=== PATIENT | male | born 1945 | race Caucasian/White ===

== ENCOUNTER 2017-02-25 12:13 | Emergency (ER) | payer OTHER, MEDICARE ==
[~2017-02-25] VITALS: Ht 172.7 cm; Wt 106.8 kg
[~2017-02-25 12:13] MED LIST: /AUGM25TA; ASPI325T; ATEN50TA2; ATEN50TA2 OR; BYETTA; CIPR500T19; FISHCAP; GLUC500T; HUMUINJ; INSULANT; INSULANT SC; INSULIN 70/30; Januvia PO; L-THYROXINE; LANTUS SC; LISI10TA4 OR; LISI2.5T PO; LOVAZA PO; NASALIDE PO; NIAS10003 OR; NIASPAN; NITR0.4S SL; REGULAR INSULIN; ROSU10TA PO; SYNT50TA PO; SYNT75TA; THERGRAN; TRIC145T19; TRILIPIX PO; VITA100T5 OR; VITA400C; [UNRECOGNIZED DRUG - REMARK]; [UNRECOGNIZED DRUG - SUPPLY]
[2017-02-25] MEDS ORDERED: ISOS60TA2 PO (12:45)
[2017-02-25] MEDS ORDERED: ROSU20TA PO (12:45)
[2017-02-25] MEDS ORDERED: JANU100T PO (12:45)
[2017-02-25] MEDS ORDERED: TOUJ1.2I SC (12:45)
[2017-02-25] MEDS ORDERED: LEVO175T2 PO (12:45)
[2017-02-25] MEDS ORDERED: TESS100C PO (12:45)
[2017-02-25] MEDS ORDERED: AMOX875T2 PO (12:45)
[2017-02-25] MEDS ORDERED: LISI10TA4 PO (12:45)
[2017-02-25] MEDS ORDERED: HUMA50IN4 SC (12:45)
[2017-02-25] MEDS ORDERED: METF500T4 PO (12:45)
[2017-02-25] MEDS ORDERED: FENO1CAP2 PO (12:45)
[2017-02-25] MEDS ORDERED: ATEN50TA2 PO (12:45)
[2017-02-25] MEDS ORDERED: CLOP75TA2 PO (12:45)
--- NOTE | 2017-02-25 14:01 | REP ---
Clinical: Shortness of breath . Comparison: 09/14/2014 . Technique: PA and lateral. Findings: The mediastinum and cardiac silhouette are stable. Prior sternotomy and CABG. The lung toussiant are clear and without acute consolidation, effusion, or pneumothorax. The skeletal structures are intact and normal. Impression: 1. No acute cardiopulmonary process. Signed by Sterling Easton MD 02/25/2017 01:53 P
[2017-02-25] MEDS ORDERED: IPRATROPIUM 0.5MG/ALBUTEROL 2.5MG INH SOL UD 3ML (DUONEB)(J7620) NEB ONE ×2 (14:30→16:15)
[2017-02-25 15:31] LABS: BASO % 0.5 % (0.0-1.0); EOS # 0.1 K/mm3 (0.0-0.50); EOS % 1.1 % (0.0-3.0); LARGE UNSTAINED CELL # 0.1 K/mm3 (0.0-0.4); LARGE UNSTAINED CELL % 1.5 % (0.0-4.0); LYMPH # 0.8 K/mm3 (1.5-4.5); LYMPH % 9.9 % (24.0-44.0); MEAN CORPUSCULAR HEMOGLOBIN 27.3 pg (27.0-33.0); MEAN CORPUSCULAR HGB CONC 33.4 g/dl (32.0-36.5); MEAN CORPUSCULAR VOLUME 81.7 fl (80.0-96.0); MONO # 0.4 K/mm3 (0.0-0.8); MONO % 4.5 % (0.0-5.0); NEUTROPHILS # 6.8 K/mm3 (1.8-7.7); NEUTROPHILS % 82.4 % (36.0-66.0); PLATELET COUNT, AUTOMATED 225 k/mm3 (150-450); RED CELL DISTRIBUTION WIDTH 12.9 % (11.5-14.5); WHITE BLOOD COUNT 8.2 K/mm3 (4.0-10.0)
[2017-02-25] MEDS ORDERED: methylPREDNISolone INJ 125 MG/2 ML VIAL (J2930) IV ONE (16:30)
[2017-02-25 16:45] LABS: ALBUMIN/GLOBULIN RATIO 0.77 (1.00-1.93); ALKALINE PHOSPHATASE 46 U/L (45-117); ALT/SGPT 30 U/L (12-78); ANION GAP 8 MEQ/L (8-16); AST/SGOT 29 U/L (15-37); BILIRUBIN,TOTAL 0.3 MG/DL (0.2-1.0); BLOOD UREA NITROGEN 16 MG/DL (7-18); CALCIUM LEVEL 8.4 MG/DL (8.8-10.2); CARBON DIOXIDE LEVEL 26 MEQ/L (21-32); CHLORIDE LEVEL 103 MEQ/L (98-107); CREATININE FOR GFR 1.12 MG/DL (0.70-1.30); GLOMERULAR FILTRATION RATE > 60.0 (>49); GLUCOSE, FASTING 191 MG/DL (80-110); POTASSIUM SERUM 4.2 MEQ/L (3.5-5.1); SODIUM LEVEL 137 MEQ/L (136-145); TOTAL PROTEIN 6.9 GM/DL (6.4-8.2)
[2017-02-25] MEDS ORDERED: PRED20TA PO (17:29)
[2017-02-25] MEDS ORDERED: AZIT-12 PO (17:29)
[2017-02-25] MEDS ORDERED: ALBU17IN2 INH (17:29)
[2017-02-25] MEDS ORDERED: AZITHROMYCIN 250 MG TAB As Ordered ONE (17:38)
[2017-02-25] MEDS ORDERED: AZITHROMYCIN 250 MG TAB PO ONE (17:45)
[2017-02-25 17:54] VITALS: BP 132/70
--- NOTE | 2017-02-26 21:01 | ECGEPIP ---
Stationary ECG Study [facility] - ED Test Date: 2017-02-25 Pat Name: NICOLE PARTIDA Department: Room: - Gender: M Visual Display Associate: rn : 1945 Requested By: RAQUEL Gamino PA-C Order Number: [id number] Reading MD: Alia Noriega Measurements Intervals Fisk Rate: 79 P: -54 WV: 137 QRS: -42 QRSD: 101 T: 59 QT: 368 QTc: 424 Interpretive Statements SINUS RHYTHM MARKED LEFT AXIS DEVIATION PATTERN CONSISTENT WITH PULMONARY DISEASE NO PRIOR FOR COMPARISON Electronically Signed On 02-26-2017 21:01:35 EDT by Alia Noriega
== END 2017-02-25 17:54 | disposition home or self-care (01) ==
LOC: M ED 12:13
DX: J20.9 Acute bronchitis, unspecified (principal)
CPT/HCPCS: 71020; 80053; 83880; 85025; 93005; 94640; 96374; 99283; J2930

== ENCOUNTER 2018-03-24 12:26 | Outpatient (RCR) | payer MEDICARE, OTHER | END 2018-04-23 | LOC: M CR 12:26 | DX: Z98.61 Coronary angioplasty status (principal) | CPT/HCPCS: 93798 ==

== ENCOUNTER 2018-05-02 11:17 | Outpatient (RCR) | payer MEDICARE, OTHER | END 2018-05-23 | LOC: M CR 11:17 | DX: Z98.61 Coronary angioplasty status (principal) | CPT/HCPCS: 93798 ==

== ENCOUNTER → 2018-05-19 | Outpatient (REF) | payer MEDICARE, OTHER ==
[2018-05-19 17:43] LABS: FERRITIN 9 NG/ML (26-388); IRON (FE) 26 UG/DL (65-175); PERCENT SATURATION 4.6 % (19.7-50.0); TOTAL IRON BINDING CAPACITY 560 UG/DL (250-450)
[2018-05-19 17:53] LABS: FOLATE 10.3 NG/ML; VITAMIN B12 LEVEL 379 PG/ML
== END ==
LOC: M LAB REF 17:02
DX: D50.9 Iron deficiency anemia, unspecified (principal)
CPT/HCPCS: 82746

== ENCOUNTER → 2018-06-02 | Outpatient (REF) | payer MEDICARE, OTHER ==
[2018-06-02 13:29] LABS: RETIC HEMOGLOBIN EQUIVALENT 28.6 pg (24-36); RETICULOCYTE # 106.3 10^9/L (17-77)
== END ==
LOC: M LAB REF 13:04
DX: D50.9 Iron deficiency anemia, unspecified (principal)
CPT/HCPCS: 85046

== ENCOUNTER 2018-06-06 09:26 | Day surgery (SDC) | payer MEDICARE, OTHER ==
[~2018-06-06] VITALS: Ht 172.7 cm; Wt 99.3 kg
[~2018-06-06 09:26] MED LIST changes: +ALBU17IN2 INH; +AMOX875T2 PO; +ASPI81TA52 PO; +ATEN50TA2 PO; +AZIT-12 PO; +CLOP75TA2 PO; +FENO1CAP2 PO; +FURO20TA2 PO; +HUMA50IN4 SC; +INSUHUMDS SC; +IRON325T7 PO; +ISOS60TA2 PO; +JANU100T PO; +JARD1TAB PO; +LEVO175T2 PO; +LISI10TA4 PO; +METF500T4 PO; +NITR4TASL SL; +OMEP40CA2 PO; +PRED20TA PO; +PROAAER10 INH; +ROSU20TA4 PO; +TESS100C PO; +TOUJ1.2I SC; +TRIL135C6 PO; +imdur PO
[2018-06-06] MEDS ORDERED: NS 1,000 ML IV ONE (10:00)
[2018-06-06] MEDS ORDERED: PROPOFOL 200 MG/20 ML VIAL As Ordered ONE (10:18)
[2018-06-06] MEDS ORDERED: LIDOCAINE 2% INJ 100 MG/5 ML SDV (FOR ANES.) As Ordered ONE (10:18)
--- NOTE | 2018-06-06 10:29 | ROOR ---
Patient Name: Sunil Braxton Procedure Date: 06/06/2018 10:16 AM Date of : 1945 Age: 73 Room: [facility] Gender: Male Note Status: Finalized Procedure: Upper GI endoscopy Indications: Iron deficiency anemia, Unexplained iron deficiency anemia Providers: Tristan Mejia MD Referring MD: NIRAV PICHARDO JR, MD Requesting Provider: Medicines: Monitored Anesthesia Care Complications: No immediate complications. Procedure: Pre-Anesthesia Assessment: - The heart rate, respiratory rate, oxygen saturations, blood pressure, adequacy of pulmonary ventilation, and response to care were monitored throughout the procedure. The Endoscope was introduced through the mouth, and advanced to the second part of duodenum. The upper GI endoscopy was accomplished without difficulty. The patient tolerated the procedure well. Findings: The Z-line was regular and was found 40 cm from the incisors. No other significant abnormalities were identified in a careful examination of the stomach. The exam of the duodenum was otherwise normal. Impression: - Z-line regular, 40 cm from the incisors. - No specimens collected. - The examination was otherwise normal. Recommendation: - Patient has a contact number available for emergencies. The signs and symptoms of potential delayed complications were discussed with the patient. Return to normal activities tomorrow. Written discharge instructions were provided to the patient. - Discharge patient to home. - Follow an antireflux regimen. - Continue present medications. - Return to referring physician. - The findings and recommendations were discussed with the patient's family. Tristan Mejia MD Tristan Meija MD 06/06/2018 10:29:01 AM This report has been signed electronically. Number of Addenda: 0 Note Initiated On: 06/06/2018 10:16 AM Estimated Blood Loss: Estimated blood loss: none.
--- NOTE | 2018-06-06 10:53 | ROOR ---
Patient Name: Sunil Braxton Procedure Date: 06/06/2018 10:17 AM Date of : 1945 Age: 73 Room: [facility] Gender: Male Note Status: Finalized Procedure: Total Colonoscopy to Cecum + Cold + Biopsy Snare Polypectomy + Hemoclips Indications: Unexplained iron deficiency anemia Providers: Tristan Mejia MD Referring MD: NIRAV PICHARDO JR, MD Requesting Provider: Medicines: Monitored Anesthesia Care Complications: No immediate complications. Procedure: Pre-Anesthesia Assessment: - The heart rate, respiratory rate, oxygen saturations, blood pressure, adequacy of pulmonary ventilation, and response to care were monitored throughout the procedure. The Colonoscope was introduced through the anus and advanced to the cecum, identified by appendiceal orifice and ileocecal valve. The colonoscopy was performed without difficulty. The patient tolerated the procedure well. The quality of the bowel preparation was excellent. Findings: The perianal and digital rectal examinations were normal. Non-bleeding internal hemorrhoids were found during retroflexion. The hemorrhoids were small and Grade I (internal hemorrhoids that do not prolapse). Multiple small and large-mouthed diverticula were found in the recto-sigmoid colon, sigmoid colon and descending colon. A medium polyp was found at 10 cm proximal to the anus. The polyp was sessile. The polyp was removed with a cold snare. Resection and retrieval were complete. To prevent bleeding after the polypectomy, one hemostatic clip was successfully placed (MR conditional). There was no bleeding at the end of the procedure. A medium polyp was found in the transverse colon. The polyp was sessile. The polyp was removed with a jumbo cold forceps. Resection and retrieval were complete. A small polyp was found at 50 cm proximal to the anus. The polyp was sessile. The polyp was removed with a jumbo cold forceps. Resection and retrieval were complete. The exam was otherwise without abnormality on direct and retroflexion views. Impression: - Non-bleeding internal hemorrhoids. - Diverticulosis in the recto-sigmoid colon, in the sigmoid colon and in the descending colon. - One medium polyp at 10 cm proximal to the anus, removed with a cold snare. Resected and retrieved. Clip (MR conditional) was placed. - One medium polyp in the transverse colon, removed with a jumbo cold forceps. Resected and retrieved. - One small polyp at 50 cm proximal to the anus, removed with a jumbo cold forceps. Resected and retrieved. - The examination was otherwise normal on direct and retroflexion views. - The exam was otherwise normal to the cecum. Recommendation: - Patient has a contact number available for emergencies. The signs and symptoms of potential delayed complications were discussed with the patient. Return to normal activities tomorrow. Written discharge instructions were provided to the patient. - High fiber diet. - Discharge patient to home. - Continue present medications. - Await pathology results. - Telephone GI clinic for pathology results in 1 week. - Repeat colonoscopy in 5 years for surveillance based on pathology results. - Return to referring physician. - Check Portal Online for Path Results.([email or web address] - The findings and recommendations were discussed with the patient's family. Tristan Mejia MD Tristan Mejia MD 06/06/2018 10:52:34 AM This report has been signed electronically. Number of Addenda: 0 Note Initiated On: 06/06/2018 10:17 AM Estimated Blood Loss: Estimated blood loss: none.
[2018-06-06 11:15] VITALS: BP 124/67
== END 2018-06-06 11:23 | disposition home or self-care (01) ==
LOC: M OPP 09:26
PROVIDERS: ATTEND Internal Medicine Gastroenterology
DX: K64.0 First degree hemorrhoids (principal); K57.30 Diverticulosis of large intestine without perforation or abscess without bleeding; D12.6 Benign neoplasm of colon, unspecified; D12.3 Benign neoplasm of transverse colon; D50.9 Iron deficiency anemia, unspecified

== ENCOUNTER 2018-07-17 14:47 | Outpatient (RCR) | payer MEDICARE, OTHER ==
--- NOTE | 2018-07-16 09:06 | CARECAPL ---
Assessment Account #s: Re-Assessment II General Diagnoses: PTCA (EXTENDED 8 MORE VISITS AFTER W/U FOR ANEMIA/POOR ATTENDENCE) Date of event: Feb 03, 2018 Physician: Jr Cobb Collins Allergies: Coded Allergies: Atorvastatin (Verified Adverse Reaction, Intermediate, muscle pain, 06/06/18) Ketorolac Tromethamine (Verified Adverse Reaction, Mild, nausea, 06/06/18) Date Entered Program: Mar 24, 2018 Risk strat for cardiac event: High Exercise Date: Jul 16, 2018 Assessment: Re-Assessment II Exercise Prescription Plan TO EDUCATE AND BUILD ENDURANCE THROUGH MONITORED EXERCISE Modalities initiated: Treadmill (METS=2.53/RPE=2.5), Nustep (METS=2.17/RPE=2), Arm Aerometer (METS=2.7/RPE=3), Dumbells (4#/RPE=3), Recumbent Bike (METS=3 .9/RPE=4) Frequency: 3 Duration (Minutes) 30-60 minutes total exercise a day. 10-12 work intervals in minutes. 5 MIN PRN rest intervals in minutes. Functional Capacity Goal Sustained Metabolic Equivalent of a task (MET) goal of 3.5-4.5 for 15-20 minutes. Intensity: 3-Moderate Progression (METS) Increase by: 0.5 METS every: 5 sessions TOLERATED Angina with ex: No Target Heart Rate +35-45 PER BETA GOGO THERAPY Resistance Training: Yes Weight (pounds): 4 Reps: 12-15 Hypertension: Yes Hypertension controlled with: Medication Resting 118/70 Peak Exercise BP 180/80 Medications Scheduled (Tobouchra Estrada), 90 UNITS SC QHS, (Reported) (Humalog Kwikpen), 20 UNITS SC QAM, (Reported) (Trilipix), 135 MG PO DAILY, (Reported) (Aspirin EC Low Dose), 81 MG PO DAILY, (Reported) (Toujeo Solostar), 70 UNIT SC QAM, (Reported) (Iron High-Potency), 65 MG PO DAILY, (Reported) Albuterol Sulfate (Proair Hfa), 2 PUFF INH PRN, (Reported) Atenolol (Atenolol), 75 MG PO DAILY, (Reported) Clopidogrel Bisulfate (Clopidogrel), 75 MG PO DAILY, (Reported) Empagliflozin (Jardiance), 10 MG PO DAILY, (Reported) Furosemide (Furosemide), 20 MG PO DAILY, (Reported) Insulin Human Lispro (Humalog), 15 UNITS SC aclunch, (Reported) Insulin Human Lispro (Humalog), 30 UNITS SC ACS, (Reported) Insulin Human Lispro (Humalog), 30 UNITS SC QHS, (Reported) Levothyroxine Sodium (Synthroid), 175 MG PO DAILY, (Reported) Lisinopril (Lisinopril), 10 MG PO DAILY, (Reported) Metformin Hydrochloride (Metformin HCl ER), 1,000 MG PO BID, (Reported) Omeprazole (Omeprazole), 40 MG PO DAILY, (Reported) Rosuvastatin Calcium (Rosuvastatin Calcium), 20 MG PO DAILY, (Reported) [imdur], 60 MG PO DAILY, (Reported) Scheduled PRN Nitroglycerin (Nitrostat), 0.4 MG SL PRN PRN for CHEST PAIN, (Reported) Current BP 108/60 Med Change: No Intervention Resistance Training: Yes Education: Self pulse, Ex safety, S/S to report, Low NA diet, BP medication, RPE Scale, Equipment orientation, warm up/cool down, Understand BP, Physical Active Target Goals Individual exercise Rx (1) BP 140/90 or 130/80 if DM or CKD (1) Aerobic active 30+min 5 days per week (1) Nutrition Date: Jul 16, 2018 Assessment: Re-Assessment II Lipid- med/supplement ROSUVASTATIN Med Change: No Diabetes Diabetes: Yes Fasting Blood Sugar: 157 Diabetes medication METFORMIN/JANUVIA Monitor Blood Sugar at home: Yes Medication Change: No Weight Management Weight (lbs): 220 Special Diet: low salt, low-fat Current Weight (pounds): 220 Intervention Security Clerk Consult: No Nurse/patient discussion: Yes Diet Class: Yes Referral to Diabetes education: No Referral to lipid clinic: No Referral to weight mangement p: No Education S&S hypo/hyper glycemia, Relate Diabetes in CAD, Eating Healthy Target goal LDL-C<100 if triglycerides are >200 Non-HDL-C should be <130 (1) LDL-C<70 for high risk patients (4) HbA1c<7% (1) BMI<25 Waist cir<40in M/<35in F (1) Education Date: Jul 16, 2018 Assessment: Re-Assessment II Learning Barriers: ready Family Support: Yes Tobacco use: No Tobacco Use Smokeless tobacco: No Intervention Referral to smoking cessation: No Individual education and couns: No Tobacco Adjunct: No Education class schedule given: No Attended education classes: No Education: CAD, Risk factors, med compliance, cardiac A&P, Angina S/S, Sexuality Target Goals Complete cessation of tobacco use (1). Psychosocial Date: Jul 16, 2018 Assessment: Re-Assessment II Intervention Physician Consult: No Physician Referral: No Med Change: No Stress Management Class: No Uses Stress Management Skills: Yes Education Education: Coping Techniques, S/S depression, Relaxation Techniques Target Goal Assess presence or absence of depression using a valid screening tool (1). Maximize coping skills (2). Positive support system (2). Patient/Program Goal Preventative Medication: Yes Aspirin, Yes Clopidogrel, Yes Beta blockade, Yes Statin/OTR lipid Lowering Fall Risk Assess: Yes Provider Assessment Session Number: 12 Tristan Baptiste RN Jul 16, 2018 09:06
== END 2018-07-24 ==
LOC: M CR 14:47
PROVIDERS: ATTEND Internal Medicine
DX: Z98.61 Coronary angioplasty status (principal)

== ENCOUNTER → 2018-08-12 | Outpatient (REF) | payer MEDICARE, OTHER ==
[2018-08-12 13:35] LABS: PERCENT SATURATION 5.4 % (19.7-50.0)
== END ==
LOC: M LAB REF 12:20
PROVIDERS: ATTEND Internal Medicine
DX: D50.9 Iron deficiency anemia, unspecified (principal)

== ENCOUNTER 2018-08-13 13:41 | Outpatient (RCR) | payer MEDICARE, OTHER ==
--- NOTE | 2018-08-13 15:09 | CARECAPL ---
General Diagnoses: PTCA Date of event: Oct 04, 2017 Physician: Jr Cobb Collins Allergies: Coded Allergies: Atorvastatin (Verified Adverse Reaction, Intermediate, muscle pain, 06/06/18) Ketorolac Tromethamine (Verified Adverse Reaction, Mild, nausea, 06/06/18) Date Entered Program: Mar 24, 2018 Risk strat for cardiac event: High Exercise Assessment: Followup/Discharge Exercise Prescription Modalities initiated: Treadmill (mets 2.53 RPE 3), Cardio-Strider (mets 2.4 RPE 2), Nustep (mets 2.0 RPE 2), Arm Aerometer (mets 2.0 RPE 2), Recumbent Bike (mets 2.5 RPE 3) Frequency: 1-2 Duration (Minutes) minutes total exercise a day. work intervals in minutes. rest intervals in minutes. Functional Capacity Goal Sustained Metabolic Equivalent of a task (MET) goal of for minutes. Intensity: 3-Moderate Progression (METS) Increase by: METS every: sessions Hypertension: No Hypertension controlled with: Medication Resting 126/56 Peak Exercise BP 166/82 Meds atenolol, lisinopril Medications Scheduled (Toujeo Solostar), 90 UNITS SC QHS, (Reported) (Humalog Kwikpen), 20 UNITS SC QAM, (Reported) (Trilipix), 135 MG PO DAILY, (Reported) (Aspirin EC Low Dose), 81 MG PO DAILY, (Reported) (Toujeo Solostar), 70 UNIT SC QAM, (Reported) (Iron High-Potency), 65 MG PO DAILY, (Reported) Albuterol Sulfate (Proair Hfa), 2 PUFF INH PRN, (Reported) Atenolol (Atenolol), 75 MG PO DAILY, (Reported) Clopidogrel Bisulfate (Clopidogrel), 75 MG PO DAILY, (Reported) Empagliflozin (Jardiance), 10 MG PO DAILY, (Reported) Furosemide (Furosemide), 20 MG PO DAILY, (Reported) Insulin Human Lispro (Humalog), 15 UNITS SC aclunch, (Reported) Insulin Human Lispro (Humalog), 30 UNITS SC ACS, (Reported) Insulin Human Lispro (Humalog), 30 UNITS SC QHS, (Reported) Levothyroxine Sodium (Synthroid), 175 MG PO DAILY, (Reported) Lisinopril (Lisinopril), 10 MG PO DAILY, (Reported) Metformin Hydrochloride (Metformin HCl ER), 1,000 MG PO BID, (Reported) Omeprazole (Omeprazole), 40 MG PO DAILY, (Reported) Rosuvastatin Calcium (Rosuvastatin Calcium), 20 MG PO DAILY, (Reported) [imdur], 60 MG PO DAILY, (Reported) Scheduled PRN Nitroglycerin (Nitrostat), 0.4 MG SL PRN PRN for CHEST PAIN, (Reported) Education Goals Met: Yes Target Goals Individual exercise Rx (1) BP 140/90 or 130/80 if DM or CKD (1) Aerobic active 30+min 5 days per week (1) Nutrition Date: Aug 13, 2018 Assessment: Followup/Discharge Med Change: No Medication Change: No Weight Management Weight (lbs): 226 Height (inches): 67 Waist Circumference (Inches): 45 BMI: 35.39 Diet Access Tool: Rate your plate Score: 54 Intervention Nurse/patient discussion: Yes Referral to Diabetes education: No Referral to lipid clinic: No Referral to weight mangement p: No Education S&S hypo/hyper glycemia, Relate Diabetes in CAD, Eating Healthy Education Goals Met: Yes Target goal LDL-C<100 if triglycerides are >200 Non-HDL-C should be <130 (1) LDL-C<70 for high risk patients (4) HbA1c<7% (1) BMI<25 Waist cir<40in M/<35in F (1) Education Date: Aug 13, 2018 Assessment: Followup/Discharge Knowledge Test Score: 9 Family Support: Yes Intervention Education: CAD, Risk factors, med compliance, cardiac A&P, Angina S/S, Sexuality Education Goals Met: Yes Target Goals Complete cessation of tobacco use (1). Psychosocial Date: Aug 13, 2018 Assessment: Followup/Discharge Psych Test (Initial/Discharge) Tool Used: CESD Score: 3 Med Change: No Stress Management Class: Yes Uses Stress Management Skills: Yes Education Education: Coping Techniques, S/S depression, Relaxation Techniques Education Goals Met: Yes Target Goal Assess presence or absence of depression using a valid screening tool (1). Maximize coping skills (2). Positive support system (2). Patient/Program Goal Preventative Medication: Yes Aspirin, Yes Clopidogrel, Yes Beta blockade, Yes LISETTE Inhibitor, Yes Statin/OTR lipid Lowering Fall Risk Assess: No Provider Assessment Session Number: 15 Provider Assessment: Proceed with rehab Merary Cook RN Aug 13, 2018 15:09
== END 2018-08-21 ==
LOC: M CR 13:41
PROVIDERS: ATTEND Internal Medicine
DX: Z98.61 Coronary angioplasty status (principal)

== ENCOUNTER → 2018-09-18 | Outpatient (REF) | payer MEDICARE, OTHER | LOC: M LAB REF 12:02 | PROVIDERS: ATTEND Internal Medicine | DX: D50.9 Iron deficiency anemia, unspecified (principal) ==

== ENCOUNTER → 2019-03-02 | Outpatient (REF) | payer MEDICARE, OTHER ==
[~2019-03-02] MED LIST changes: +CRES10TA32 PO; +FENO135C6 PO; -FENO1CAP2 PO; +FERR325T82 PO; -IRON325T7 PO; +METF-791 PO; -METF500T4 PO; -ROSU10TA PO; -ROSU20TA4 PO; +ROSU20TA5 PO
[2019-03-02 14:17] LABS: PERCENT SATURATION 11.5 % (19.7-50.0)
== END ==
LOC: M LAB REF 12:32
PROVIDERS: ATTEND Internal Medicine
DX: D50.9 Iron deficiency anemia, unspecified (principal)

== ENCOUNTER → 2019-05-04 | Outpatient (REF) | payer MEDICARE, OTHER ==
[~2019-05-04] MED LIST changes: -OMEP40CA2 PO; +OMEP40CA97 PO
[2019-05-04 13:00] LABS: PERCENT SATURATION 11.1 % (19.7-50.0)
[2019-05-04 13:01] LABS: FOLATE 8.6 NG/ML
== END ==
LOC: M LAB REF 12:23
PROVIDERS: ATTEND Internal Medicine
DX: D50.9 Iron deficiency anemia, unspecified (principal)

== ENCOUNTER → 2019-10-05 | Outpatient (REF) | payer MEDICARE, OTHER ==
[2019-10-05 17:36] LABS: PERCENT SATURATION 14.1 % (19.7-50.0)
== END ==
LOC: M LAB REF 16:28
PROVIDERS: ATTEND Internal Medicine
DX: D50.9 Iron deficiency anemia, unspecified (principal); Z88.8 Allergy status to other drugs, medicaments and biological substances

== ENCOUNTER → 2020-05-24 | Outpatient (REF) | payer MEDICARE, OTHER ==
[~2020-05-24] MED LIST changes: -METF-791 PO; +METF-838 PO
[2020-05-24 13:22] LABS: PERCENT SATURATION 17.1 % (19.7-50.0)
== END ==
LOC: M LAB REF 11:56
PROVIDERS: ATTEND Internal Medicine
DX: D50.9 Iron deficiency anemia, unspecified (principal)

== ENCOUNTER 2021-02-15 15:37 | Emergency (ER) | payer MEDICARE, OTHER ==
[~2021-02-15] VITALS: Ht 172.7 cm; Wt 97.7 kg
[~2021-02-15 15:37] MED LIST changes: +ISOS1TAB36 PO; -ISOS60TA2 PO; +LISI10TA22 PO; -LISI10TA4 PO; +OMEP40CA4 PO; -OMEP40CA97 PO
[2021-02-15] MEDS ORDERED: ACETAMINOPHEN TAB 650MG DOSE (2X325MG) PO ONE (17:40)
[2021-02-15] MEDS ORDERED: ceFAZolin SOD 2 GM in IV 1 EA IV ONE (19:10)
--- NOTE | 2021-02-15 19:10 | REP ---
INDICATION: edema. COMPARISON: None. TECHNIQUE: Left {lower extremity duplex venous scanning is performed from the groin to the ankle level. FINDINGS: The deep veins are anechoic and fully compressible from the groin to the popliteal fossa in the left lower extremity. Color flow imaging is homogeneous. Spectral Doppler interrogation demonstrates intact respiratory variation in flow and normal manual augmentation of flow. There is no evidence of deep vein thrombosis above the knee. There is no evidence of DVT in the visualized calf veins. Doppler interrogation of the contralateral common femoral vein shows normal symmetric respiratory phasicity. IMPRESSION: No evidence of DVT in the left lower extremity femoropopliteal veins. No DVT in the visible portions of the calf veins. <Electronically signed by Tung Monroy > 02/15/21 [id number]
[2021-02-15 20:35] LABS: BASO % 0.2 % (0.0-1.0); EOS % 0.1 % (0.0-3.0); HEMATOCRIT 46.2 % (42.0-52.0); HEMOGLOBIN 14.8 g/dl (13.5-17.5); LYMPH # 1.8 10^3/uL (1.5-5.0); MEAN CORPUSCULAR HEMOGLOBIN 27.8 pg (27.0-33.0); MEAN CORPUSCULAR VOLUME 86.7 fl (80.0-96.0); MONO % 5.9 % (2.0-8.0); NEUTROPHILS # 14.6 10^3/uL (1.5-8.5); NEUTROPHILS % 83.2 % (36.0-66.0); PLATELET COUNT, AUTOMATED 203 10^3/uL (150-450); RED BLOOD COUNT 5.33 10^6/uL (4.30-6.10); WHITE BLOOD COUNT 17.6 10^3/uL (4.0-10.0)
[2021-02-15] MEDS ORDERED: CEPH500C PO (20:40)
[2021-02-15 21:06] LABS: CALCIUM LEVEL 9.4 MG/DL (8.8-10.2); CREATININE FOR GFR 1.27 MG/DL (0.70-1.30); GLOMERULAR FILTRATION RATE 59.2 (>42); POTASSIUM SERUM 4.4 MEQ/L (3.5-5.1)
[2021-02-15 22:34] VITALS: BP 140/63
== END 2021-02-15 22:36 | disposition home or self-care (01) ==
LOC: M ED 15:37
DX: L03.116 Cellulitis of left lower limb (principal); Z79.4 Long term (current) use of insulin; Z79.82 Long term (current) use of aspirin; Z79.899 Other long term (current) drug therapy; Z88.8 Allergy status to other drugs, medicaments and biological substances
CPT/HCPCS: 80048; 85025; 87040; 93971; 96365; 99284; J0690

== ENCOUNTER → 2021-02-23 | Outpatient (REF) | payer MEDICARE, OTHER ==
[~2021-02-23] MED LIST changes: +CEPH500C PO
== END ==
LOC: M LAB REF 15:53
PROVIDERS: ATTEND Internal Medicine
DX: L03.116 Cellulitis of left lower limb (principal)
CPT/HCPCS: 11104; 86140; 97597; 97598; G0463

== ENCOUNTER → 2021-02-24 | Outpatient (REF) | payer MEDICARE, OTHER | LOC: M LAB REF 11:29 | PROVIDERS: ATTEND Physician Assistant | DX: S90.822A Blister (nonthermal), left foot, initial encounter (principal); X58.XXXA Exposure to other specified factors, initial encounter; Y92.9 Unspecified place or not applicable; Y93.9 Activity, unspecified; Y99.9 Unspecified external cause status ==

== ENCOUNTER → 2021-03-02 | Outpatient (REF) | payer MEDICARE, OTHER | LOC: M LAB REF 13:50 | PROVIDERS: ATTEND Internal Medicine | DX: L03.116 Cellulitis of left lower limb (principal) ==

== ENCOUNTER → 2021-03-10 | Outpatient (CLI) | payer MEDICARE, OTHER ==
--- NOTE | 2021-03-10 14:22 | REP ---
INDICATION: BLISTER OF LEFT HEEL. COMPARISON: None. TECHNIQUE: Real time medrano scale and Duplex Doppler evaluation of the left lower extremity arterial vasculature using linear high frequency transducer. FINDINGS: The ankle to brachial index of the left lower extremity is 1.2. There is moderate to severe plaque throughout the left lower extremity arterial structures. There are biphasic waveforms noted proximally, with monophasic waveform throughout the posterior tibial artery and in the distal anterior tibial artery. There is no compelling duplex Doppler sonographic evidence of arterial occlusion or focal stenosis. PSV(cm/sec) Common femoral artery: 111 cm/s Profunda femoris artery: 151 cm/s Proximal superficial femoral artery: 115 cm/s Mid superficial femoral artery: 164 cm/s Distal superficial femoral artery: 95 cm/s Popliteal artery: 115 cm/s Proximal JOSE: 79 cm/s Tibioperoneal trunk: 81 cm/s Proximal MERCHANDISE WORKER: 62 cm/s Distal MERCHANDISE WORKER: 100 cm/s Distal JOSE: 64 cm/s IMPRESSION: No Duplex Doppler sonographic evidence of hemodynamically significant stenosis of the left lower extremity arterial system. Moderate to severe diffuse plaquing. <Electronically signed by Ricardo Medrano > 03/10/21 [id number]
== END ==
LOC: M RAD 12:18
PROVIDERS: ATTEND Physician Assistant
DX: S90.822A Blister (nonthermal), left foot, initial encounter (principal); I70.202 Unspecified atherosclerosis of native arteries of extremities, left leg; X58.XXXA Exposure to other specified factors, initial encounter; Y92.9 Unspecified place or not applicable; Y93.9 Activity, unspecified; Y99.9 Unspecified external cause status

== ENCOUNTER → 2021-03-16 | Outpatient (REF) | payer MEDICARE, OTHER | LOC: M LAB REF 16:07 | PROVIDERS: ATTEND Internal Medicine | DX: I77.6 Arteritis, unspecified (principal) | CPT/HCPCS: 86140; G0463 ==

== ENCOUNTER → 2021-03-21 | Outpatient (POV) | payer MEDICARE, OTHER ==
[~2021-03-21] VITALS: Ht 172.7 cm; Wt 92.2 kg
[2021-03-21 11:00] VITALS: BP 153/70
--- NOTE | 2021-03-23 11:32 | IRCOV ---
[facility] IR Consult Office Visit IR Consult Office Visit DATE: Mar 21, 2021 REASON FOR CONSULTATION/CHIEF COMPLAINT: Left lower extremity wound. HISTORY OF PRESENT ILLNESS: 76-year-old male, with diabetes, coronary artery disease, obstructive sleep apnea, hypertension and hyperlipidemia, presents with asymmetric swelling and weeping at the left ankle. He reports he had a blister over his left posterior heel and Achilles tendon and he was referred to wound care. He was treated with Keflex for cellulitis and the area improved. He was then referred to wound care. He had a biopsy of the area due to interesting skin changes, and this demonstrated leukoplastic vasculitis. He is waiting to see rheumatology. Patient describes his left lower extremity swells. His skin weeps. He denies intermittent claudication. He denies rest pain. He denies pain with leg elevation. He denies prior DVT. He denies prior lower extremity arterial or venous intervention. He did have a vein graft harvested from his left lower extremity. ALLERGIES: Please see below. HOME MEDICATIONS: Please see below. PAST MEDICAL HISTORY: Diabetes FERNANDA Metabolic syndrome Hypothyroidism Hypertension Coronary arteriosclerosis Hypercholesterolemia PAST SURGICAL HISTORY: Heart stents 2019 Cholecystectomy 2009 Cataract surgery Triple bypass 2002 FAMILY HISTORY: Heart disease. SOCIAL HISTORY: Non-smoker. Denies alcohol or drugs. REVIEW OF SYSTEMS: Otherwise negative. PHYSICAL EXAMINATION: VITAL SIGNS: Please see below. GENERAL APPEARANCE: Appears well. Comfortable at rest. HEENT: No scleral icterus. RESPIRATORY: Normal breathing at rest. CARDIOVASCULAR: Normal rate. ABDOMEN: Nontender. EXTREMITIES: Left lower extremity: Edematous ankle up to the mid tibia. Weeping and bogginess over the Achilles tendon. Damp shiny boggy skin. Desquamation. Multiple skin lesions. Warm to touch. Pulses are good. DP/PT 2+. Sensation intact. Motor 5 out of 5. Right lower extremity: Normal in color and temperature. 1 superficial skin lesion. NEUROLOGICAL: Alert and oriented. PSYCHIATRIC: Appropriate to circumstance. LABORATORY DATA: 02/15/2021 hemoglobin 14.8 hematocrit 46.2 WBC 17.6 platelets 203. Sodium 137 potassium 4.4 BUN 31 creatinine 1.27 GFR 59.2 Imaging: I personally reviewed the left lower extremity arterial ultrasound performed 03/10/2021. Patent left common femoral, superficial femoral, profunda femoris, popliteal arteries. There is diffuse atherosclerotic disease below the knee, which is not too bad and in keeping with his diabetes and coronary risk factors. No focal occlusions or significant stenosis. I personally reviewed his left lower extremity DVT study. No left lower extremity DVT. 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 Patient will need to follow-up with rheumatology and/or dermatology as appropriate. On arterial history and examination findings, I do not see any further indication for lower extremity arterial intervention. Given his dependent edema of the left lower extremity, I will order a venous reflux study to evaluate if venous incompetency is further contributing to the edema and skin breakdown. We have scheduled patient for ultrasound venous reflux study of the left lower extremity. I spent 30 minutes reviewing patient's records, imaging and in consultation with the patient. Thank you for this referral. CC Dr. Cobb CC Jose Juan Kraus PA-C Allergies Coded Allergies: atorvastatin (Verified Allergy, Unknown, 02/15/21) ketorolac (Verified Allergy, Unknown, 02/15/21) Home Medications Scheduled (Aspirin EC Low Dose), 81 MG PO DAILY, (Reported) Albuterol Sulfate (Proair Hfa), 2 PUFF INH PRN, (Reported) Atenolol (Atenolol), 75 MG PO DAILY, (Reported) Cephalexin (Cephalexin), 1 CAP PO QID Clopidogrel Bisulfate (Clopidogrel), 75 MG PO DAILY, (Reported) Empagliflozin (Jardiance), 10 MG PO DAILY, (Reported) Fenofibric Acid (Choline) (Trilipix), 135 MG PO DAILY, (Reported) Ferrous Sulfate (Iron), 65 MG PO DAILY, (Reported) Furosemide (Furosemide), 20 MG PO DAILY, (Reported) Insulin Glargine,Hum.rec.anlog (Toujeo Solostar), 90 UNITS SC QHS, (Reported) Insulin Glargine,Hum.rec.anlog (Toujeo Solostar), 70 UNIT SC QAM, (Reported) Insulin Human Lispro (Humalog), 15 UNITS SC aclunch, (Reported) Insulin Human Lispro (Humalog), 30 UNITS SC ACS, (Reported) Insulin Human Lispro (Humalog), 30 UNITS SC QHS, (Reported) Insulin Lispro (Humalog Kwikpen U-200), 20 UNITS SC QAM, (Reported) Levothyroxine Sodium (Levothyroxine Sodium), 175 MG PO DAILY, (Reported) Lisinopril (Lisinopril), 10 MG PO DAILY, (Reported) Metformin HCl (Metformin HCl ER), 1,000 MG PO BID, (Reported) Omeprazole (Omeprazole), 40 MG PO DAILY, (Reported) Rosuvastatin Calcium (Rosuvastatin Calcium), 20 MG PO DAILY, (Reported) [imdur], 60 MG PO DAILY, (Reported) Scheduled PRN Nitroglycerin (Nitrostat), 0.4 MG SL PRN PRN for CHEST PAIN, (Reported) VS, I&O, 24H, Fishbone Vital Signs/I&O Vital Signs Date Time Temp Pulse Resp B/P (MAP) Pulse Ox O2 Delivery O2 Flow Rate FiO2 03/21/21 11:00 98.5 85 20 153/70 (97) 98 Room Air MAXI TERRAZAS MD Mar 23, 2021 11:32
== END ==
LOC: M IRPOV 10:57
PROVIDERS: ATTEND Radiology Diagnostic Radiology
DX: I77.6 Arteritis, unspecified (principal); E11.9 Type 2 diabetes mellitus without complications; I25.10 Atherosclerotic heart disease of native coronary artery without angina pectoris; G47.33 Obstructive sleep apnea (adult) (pediatric); I10 Essential (primary) hypertension; E78.5 Hyperlipidemia, unspecified; Z79.899 Other long term (current) drug therapy; Z88.8 Allergy status to other drugs, medicaments and biological substances; Z95.5 Presence of coronary angioplasty implant and graft; Z96.1 Presence of intraocular lens

== ENCOUNTER → 2021-04-04 | Outpatient (CLI) | payer MEDICARE, OTHER ==
--- NOTE | 2021-04-04 13:11 | REP ---
INDICATION: LT LEG VENOUS HTN, ULCER COMPARISON: None. TECHNIQUE: Medrano scale and color Doppler evaluation using linear high frequency transducer with reflux evaluation. FINDINGS: There is no evidence for deep venous thrombosis to the left lower extremity. Patient is noted to be status post partial left greater saphenous vein harvesting for prior vascular procedure. There is no evidence for reflux through the deep venous structures. The residual anterior to mid greater saphenous vein measures up to 7.3 mm diameter without evidence for reflux. Scattered superficial collateral vessels originating from the midthigh level are noted without reflux. IMPRESSION: Findings as described above. No evidence for reflux disease. <Electronically signed by Sterling Easton > 04/04/21 [id number]
== END ==
LOC: M RAD 11:10
PROVIDERS: ATTEND Radiology Diagnostic Radiology
DX: I87.312 Chronic venous hypertension (idiopathic) with ulcer of left lower extremity (principal); L97.929 Non-pressure chronic ulcer of unspecified part of left lower leg with unspecified severity

== ENCOUNTER → 2021-05-01 | Outpatient (CLI) | payer MEDICARE, OTHER ==
[2021-05-01 13:12] LABS: BASO % 0.6 % (0.0-1.0); EOS # 0.1 10^3/uL (0.0-0.5); HEMATOCRIT 39.2 % (42.0-52.0); HEMOGLOBIN 12.2 g/dl (13.5-17.5); LYMPH # 2.3 10^3/uL (1.5-5.0); LYMPH % 33.6 % (24.0-44.0); MEAN CORPUSCULAR HEMOGLOBIN 27.2 pg (27.0-33.0); MEAN CORPUSCULAR HGB CONC 31.1 g/dl (32.0-36.5); MEAN CORPUSCULAR VOLUME 87.3 fl (80.0-96.0); MONO # 0.7 10^3/uL (0.0-0.8); MONO % 10.8 % (2.0-8.0); NEUTROPHILS # 3.7 10^3/uL (1.5-8.5); NEUTROPHILS % 53.6 % (36.0-66.0); PLATELET COUNT, AUTOMATED 240 10^3/uL (150-450); RED BLOOD COUNT 4.49 10^6/uL (4.30-6.10); WHITE BLOOD COUNT 6.9 10^3/uL (4.0-10.0)
[2021-05-01 13:40] LABS: BLOOD UREA NITROGEN 24 MG/DL (7-18); CALCIUM LEVEL 9.2 MG/DL (8.8-10.2); CARBON DIOXIDE LEVEL 29 MEQ/L (21-32); CHLORIDE LEVEL 108 MEQ/L (98-107); CREATININE FOR GFR 1.06 MG/DL (0.70-1.30); GLOMERULAR FILTRATION RATE > 60.0 (>42); GLUCOSE, FASTING 125 MG/DL (70-100); POTASSIUM SERUM 4.1 MEQ/L (3.5-5.1); SODIUM LEVEL 142 MEQ/L (136-145)
== END ==
LOC: M LAB 12:39
DX: I25.10 Atherosclerotic heart disease of native coronary artery without angina pectoris (principal); R94.39 Abnormal result of other cardiovascular function study

== ENCOUNTER → 2021-06-13 | Outpatient (REF) | payer MEDICARE, OTHER ==
[2021-06-13 17:19] LABS: APPEARANCE, URINE HAZY (CLEAR); BACTERIA, URINE AUTO NEGATIVE (NEGATIVE); BILIRUBIN, URINE AUTO NEGATIVE (NEGATIVE); BLOOD, URINE BLOOD NEGATIVE (NEGATIVE); COLOR, URINE STRAW (YELLOW); GLUCOSE, URINE (UA) AUTO 3+ mg/dL (NEGATIVE); KETONE, URINE AUTO NEGATIVE (NEGATIVE); LEUKOCYTE ESTERASE, URINE AUTO 3+ (NEGATIVE); NITRITE, URINE AUTO NEGATIVE (NEGATIVE); PROTEIN, URINE AUTO NEGATIVE (NEGATIVE); RBC, URINE AUTO 1 /HPF (0-3); SPECIFIC GRAVITY URINE AUTO 1.009 (1.002-1.035); SQUAMOUS EPITHELIAL CELL UR AU 0 /HPF (0-6); UROBILINOGEN, URINE AUTO 0.2 mg/dL (0.0-2.0); WBC, URINE AUTO 53 /HPF (0-3)
[2021-06-13 17:40] LABS: C REACTIVE PROTEIN QUANTITATIV < 0.30 MG/DL (0.00-0.30)
[2021-06-13 17:56] LABS: HEPATITIS B SURFACE ANTIBODY NEGATIVE (POSITIVE); TOTAL PROTEIN,RANDOM URINE < 5.0 MG/DL (0.0-12.0)
[2021-06-13 18:07] LABS: HEPATITIS B SURFACE ANTIGEN NEGATIVE (NEGATIVE)
[2021-06-13 18:36] LABS: HEPATITIS C VIRUS ABY INDEX 0.1 INDEX (<0.8)
[2021-06-19 16:08] LABS: HEPATITIS B CORE ANTIBODY IGG Negative (Negative)
== END ==
LOC: M SFHCRHEU 15:50
PROVIDERS: ATTEND Internal Medicine
DX: M31.0 Hypersensitivity angiitis (principal); Z79.899 Other long term (current) drug therapy; Z79.4 Long term (current) use of insulin; Z79.51 Long term (current) use of inhaled steroids
CPT/HCPCS: 81001; 82570; 84156; 85652; 86140; 86256; 86704; 86706; 86803; 87340; G0463

== ENCOUNTER → 2021-06-21 | Outpatient (CLI) | payer MEDICARE, OTHER ==
[2021-06-21 12:43] LABS: COMPLEMENT C3 137 MG/DL (90-180); COMPLEMENT C4 28 MG/DL (10-40)
== END ==
LOC: M LAB 11:41
PROVIDERS: ATTEND Internal Medicine
DX: M31.0 Hypersensitivity angiitis (principal)

== ENCOUNTER → 2021-08-02 | Outpatient (CLI) | payer MEDICARE, OTHER ==
[2021-08-03 10:19] LABS: ALBUMIN 4.25 GM/DL (3.29-5.55); ALBUMIN % 60.7 % (55.8-66.1); ALPHA-1-GLOBULIN % 4.2 % (2.9-4.9); ALPHA-1-GLOBULINS 0.29 GM/DL (0.17-0.41); ALPHA-2-GLOBULINS 1.02 GM/DL (0.42-0.99); ALPHA-2-GLOBULINS % 14.5 % (7.1-11.8); BETA-1-GLOBULINS 0.47 GM/DL (0.28-0.60); BETA-1-GLOBULINS % 6.7 % (4.7-7.2); BETA-2-GLOBULINS 0.31 GM/DL (0.19-0.55); BETA-2-GLOBULINS % 4.4 % (3.2-6.5); GAMMA GLOBULIN % 9.5 % (11.1-18.8); GAMMA GLOBULINS 0.67 GM/DL (0.65-1.58)
== END ==
LOC: M LAB 09:21
PROVIDERS: ATTEND Internal Medicine
DX: M31.0 Hypersensitivity angiitis (principal)

== ENCOUNTER → 2021-08-03 | Outpatient (REF) | payer MEDICARE, OTHER ==
[2021-08-03 17:44] LABS: APPEARANCE, URINE CLEAR (CLEAR); BACTERIA, URINE AUTO 1+ (NEGATIVE); BILIRUBIN, URINE AUTO NEGATIVE (NEGATIVE); BLOOD, URINE BLOOD NEGATIVE (NEGATIVE); COLOR, URINE STRAW (YELLOW); GLUCOSE, URINE (UA) AUTO 3+ mg/dL (NEGATIVE); KETONE, URINE AUTO NEGATIVE (NEGATIVE); LEUKOCYTE ESTERASE, URINE AUTO 2+ (NEGATIVE); MUCUS, URINE SMALL (NEGATIVE); NITRITE, URINE AUTO NEGATIVE (NEGATIVE); PROTEIN, URINE AUTO NEGATIVE (NEGATIVE); RBC, URINE AUTO 1 /HPF (0-3); SQUAMOUS EPITHELIAL CELL UR AU 1 /HPF (0-6); UROBILINOGEN, URINE AUTO 0.2 mg/dL (0.0-2.0); WBC, URINE AUTO 63 /HPF (0-3)
== END ==
LOC: M SFHCRHEU 12:06
PROVIDERS: ATTEND Internal Medicine
DX: R82.998 Other abnormal findings in urine (principal)

== ENCOUNTER 2024-01-01 11:17 | Day surgery (SDC) | payer MEDICARE, OTHER ==
[~2024-01-01] VITALS: Ht 170.2 cm; Wt 76.1 kg
[~2024-01-01 11:17] MED LIST changes: +ECOT81TA5 PO; +JARD1TAB3 PO; +LIDOCAINE 2% 100MG/5ML SDV (FOR ANES.) As Ordered ONE; -ROSU20TA5 PO; +ROSU20TA61 PO; +SEMA1PEN2 SQ; +propofoL 200 MG/20 ML VIAL As Ordered ONE
[2024-01-01] MEDS: NS 1,000 ML IV ONE (11:42)
[2024-01-01 13:40] VITALS: BP 162/80; TEMP 98.8; O2SAT 100
== END 2024-01-01 14:15 | disposition home or self-care (01) ==
LOC: M OPP 11:17
PROVIDERS: ATTEND Internal Medicine Gastroenterology
DX: Z12.11 Encounter for screening for malignant neoplasm of colon (principal); Z86.010 Personal history of colon polyps; D12.6 Benign neoplasm of colon, unspecified; K64.0 First degree hemorrhoids; K57.30 Diverticulosis of large intestine without perforation or abscess without bleeding; K55.20 Angiodysplasia of colon without hemorrhage; I10 Essential (primary) hypertension; Z95.5 Presence of coronary angioplasty implant and graft; Z86.74 Personal history of sudden cardiac arrest; E11.9 Type 2 diabetes mellitus without complications; G47.30 Sleep apnea, unspecified; Z79.02 Long term (current) use of antithrombotics/antiplatelets; Z79.4 Long term (current) use of insulin; Z79.51 Long term (current) use of inhaled steroids; Z79.82 Long term (current) use of aspirin; Z79.890 Hormone replacement therapy; Z88.6 Allergy status to analgesic agent; Z88.8 Allergy status to other drugs, medicaments and biological substances